=== PATIENT | male | born 1995 | race Two or more races ===

== ENCOUNTER 2017-06-29 06:38 | Emergency (ER) | payer OTHER ==
[~2017-06-29] VITALS: Ht 182.9 cm; Wt 6.8 kg
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
== END 2017-06-29 08:59 | disposition home or self-care (01) ==
LOC: CED 06:38
DX: S76.011A Strain of muscle, fascia and tendon of right hip, initial encounter (principal); S80.01XA Contusion of right knee, initial encounter; V49.40XA Driver injured in collision with unspecified motor vehicles in traffic accident, initial encounter
CPT/HCPCS: 29505; 73502; 73560; 99284